=== PATIENT | female | born 1960 | race Caucasian/White ===

== ENCOUNTER 2016-06-03 13:26 | Day surgery (SDC) | payer OTHER ==
[~2016-06-03] VITALS: Ht 162.6 cm; Wt 62.6 kg
[~2016-06-03 13:26] MED LIST: B12/1TAB PO; BUPR150T12 PO; MULT1CAP33 PO; Sodium Biphos-Phos 133 mL Enema RECTAL PRN; Sodium Chloride LOK Flush 10 mL Syringe IV PRN; THERACURMIN; [UNRECOGNIZED DRUG - CODE] PO; [UNRECOGNIZED DRUG - OTHER] PO; fentaNYL-PF 50 mCg/mL 2 mL Inj IVPUSH PRN
[2016-06-03 13:51] VITALS: BP 115/56; PULSE 54; RESP 16; O2SAT 99
[2016-06-03] MEDS: 0.9% Sodium Chloride 1,000 ML IV SCH ×2 (14:07→14:50)
[2016-06-03 15:03] VITALS: BP 109/50; PULSE 60; RESP 15; O2SAT 99
[2016-06-03 15:13] VITALS: BP 109/75; PULSE 82; RESP 16; O2SAT 98
[2016-06-03 15:23] VITALS: BP 104/68; PULSE 72; RESP 16; O2SAT 98
--- NOTE | 2016-06-03 22:03 | ENDO ---
[address] [address] ENDOSCOPY PROCEDURE PATIENT: TRACY CHANG : 1960 MR#: [id number] ADMIT: 06/03/2016 JOB ID: [id number] DATE: 06/03/2016 PREPROCEDURE DIAGNOSIS: Sigmoid colon cancer. POSTPROCEDURE DIAGNOSIS: Sigmoid colon cancer. PROCEDURE: Colonoscopy. ENDOSCOPIST: Dr. Giovanni Garnica. MEDICATIONS: 1. Versed 7 mg. 2. Fentanyl 125. 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 She then received adjuvant chemotherapy with FOLFOX, completing 12 cycles. Follow-up imaging in April including CT scan of the abdomen and pelvis showed stable subcentimeter hypodensities in the liver, consistent with simple hepatic cysts. No other new disease is identified. CEA was normal at 2.4. She developed some increased symptoms of late of intermittent cramping and loose stool, but had no blood in her stool. After discussion of risks and benefits, she agreed to proceed with colonoscopy. FINDINGS: She had an intact Elias style side-to-end anastomosis at approximately 10 cm from the anal verge via flexible scope. There was no nodularity whatsoever at the anastomosis. There were no diverticula. There was no evidence of colitis. No other mucosal abnormalities were seen. DESCRIPTION OF PROCEDURE: Procedural sedation was achieved. The patient was connected to hemodynamic monitoring, pulse oximetry, capnography. After digital rectal exam, the PCF-H190L colonoscope was passed under visualization through the anastomosis and to the cecum where the ileocecal valve and appendiceal orifice were visualized and photo documented. The scope was then carefully withdrawn using circumferential tip motion. The quality of the prep was good. No mucosal abnormalities were seen. The prior Elias anastomosis with this side-to-end configuration was seen at approximately 10 cm via flexible scope. The blind end had no abnormalities with a visible staple line. The circular stapled anastomosis was widely patent, and there were no visible mucosal abnormalities. Retroflexion was not performed because of the relatively short rectal vault. The scope was withdrawn and the procedure terminated. She tolerated the entire procedure well. RECOMMENDATIONS: For colon screening, recommend that as long as no new symptoms arise and CEA remains low, next colonoscopy can be in three years.
== END 2016-06-03 23:59 | disposition home or self-care (01) ==
LOC: END 13:26
PROVIDERS: ATTEND Student in an Organized Health Care Education/Training Program
DX: Z08 Encounter for follow-up examination after completed treatment for malignant neoplasm (principal); Z85.038 Personal history of other malignant neoplasm of large intestine; Z90.49 Acquired absence of other specified parts of digestive tract; K58.9 Irritable bowel syndrome, unspecified